=== PATIENT | female | born 1960 | race Caucasian/White ===

== ENCOUNTER → 2017-01-02 | Outpatient (CLI) | payer MEDICARE | END | disposition home or self-care (01) | LOC: RAD.S 13:00 | DX: Z87.891 Personal history of nicotine dependence (principal); D69.6 Thrombocytopenia, unspecified; B18.2 Chronic viral hepatitis C; I10 Essential (primary) hypertension; R91.8 Other nonspecific abnormal finding of lung field; J98.4 Other disorders of lung ==